=== PATIENT | male | born 1965 | race Caucasian/White ===

== ENCOUNTER 2017-08-03 12:11 | Emergency (ER) | payer SELFPAY ==
[~2017-08-03] VITALS: Ht 193 cm; Wt 97.0 kg
[~2017-08-03 12:11] MED LIST: OXYC-360 PO; Z.0.NO CURRENT MEDS
[2017-08-03 12:19] VITALS: BP 126/77; PULSE 97; RESP 17; TEMP 99.1; O2SAT 100
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
== END 2017-08-03 13:30 | disposition home or self-care (01) ==
LOC: PHEFT 12:11
DX: M79.621 Pain in right upper arm (principal); Z72.0 Tobacco use
CPT/HCPCS: 73060; 99283